=== PATIENT | male | born 1965 | race Caucasian/White ===

== ENCOUNTER 2023-03-27 19:48 | Emergency (ER) | payer SELFPAY ==
[~2023-03-27] VITALS: Ht 167.6 cm; Wt 60.0 kg
[2023-03-27 20:23] LABS: BASO% 0.5 % (0-3); EOS% 2.1 % (0-8); HEMATOCRIT 37.8 % (39.0-50.0); HEMOGLOBIN 12.4 g/dl (14.0-18.0); IMMATURE GRANULOCYTES 0.2 % (0.0-5.0); MEAN CELL VOLUME 94.5 fL CALC (80.0-100.0); MEAN CORPUSCULAR HGB CONC 32.8 g/dL CAL (32.0-36.0); MONO% 13.1 % (2-13); NEUT# 4.44 thou/uL (1.82-7.42); NEUT% 54.1 % (42-76); RED CELL DISTRI WIDTH 15.4 % (11.5-15.5)
[2023-03-27 20:28] LABS: ALBUMIN 3.8 g/dL (3.2-5.0); ALKALINE PHOSPHATASE 63 u/l (38-126); ANION GAP 10 (6-22 (CALC)); BILIRUBIN, TOTAL 0.4 mg/dL (0.2-1.3); BUN 9 mg/dL (9-20); BUN/CREATININE RATIO 10 (12-20 (CALC)); CARBON DIOXIDE 26 mmol/l (22-30); CHLORIDE 102 mmol/l (95-108); CREATININE 0.9 mg/dL (0.7-1.3); ETHYL ALCOHOL 0 mg/dl (0-30); GFR FOR AFR.AMER. > 60 ML/MIN (>=60 (CALC)); GFR OTHER RACES > 60 ML/MIN (>=60 (CALC)); LIPASE 155 u/l (23-300); SGOT/AST 25 u/l (17-59); SODIUM 134 mmol/l (137-146); TOTAL PROTEIN 6.4 g/dL (6.3-8.2)
[2023-03-27 21:00] LABS: URINE BILIRUBIN - DIPSTICK NEGATIVE (NEGATIVE); URINE BLOOD DIPSTICK SMALL (NEGATIVE); URINE COLOR YELLOW; URINE GLUCOSE - DIPSTICK NEGATIVE (NEGATIVE); URINE KETONE NEGATIVE (NEGATIVE); URINE LEUK ESTERASE NEGATIVE (NEGATIVE); URINE NITRITE - DIPSTICK NEGATIVE (Negative); URINE PH 6.5 (4.5-8.0); URINE PROTEIN - DIPSTICK 30 mg/dL (NEG-TRACE); URINE SPECIFIC GRAVITY 1.025
[2023-03-27 21:02] LABS: URINE WBC 0-2 WBC/hpf (0-5)
[2023-03-27] MEDS ORDERED: PROMETHAZINE HY25 M1 PO (22:06)
[2023-03-27 22:15] VITALS: BP 160/86
[2023-03-27 22:30] VITALS: BP 133/78
[2023-03-27 22:38] VITALS: BP 138/84
== END 2023-03-27 23:00 | disposition home or self-care (01) | DRG 392 ==
LOC: ED 19:48
PROVIDERS: Family Medicine
DX: K52.9 Noninfective gastroenteritis and colitis, unspecified (principal); F31.9 Bipolar disorder, unspecified; F17.210 Nicotine dependence, cigarettes, uncomplicated
CPT/HCPCS: Q9967